=== PATIENT | male | born 1965 | race Caucasian/White ===

== ENCOUNTER 2017-02-09 10:19 | Emergency (ER) | payer BC ==
[2017-02-09 10:43] VITALS: BP 128/99
[2017-02-09] MEDS ORDERED: Lidocaine 1% 30 ML SDV INJECT ONE (10:43)
--- NOTE | 2017-02-09 10:49 | EDM.PDOC ---
ED HPI GENERAL MEDICAL PROBLEM - General Chief Complaint: Laceration Stated Complaint: FISH HOOK IN FINGER Time Seen by Provider: 02/09/17 10:44 Source of Information: Reports: Patient History Limitations: Reports: No Limitations - History of Present Illness INITIAL COMMENTS - FREE TEXT/NARRATIVE: 51 you male presents with fish hook to right thumb. Removed part prior to arrival however still has piece located at nail bed. Onset: Today Location: Reports: Upper Extremity, Left Quality: Reports: Ache Severity: Mild Improves with: Reports: None Worsens with: Reports: None Associated Symptoms: Reports: No Other Symptoms Left 1-Thumb Pain Score (Numeric/FACES): 4 - Related Data Allergies Allergy/AdvReac Type Severity Reaction Status Date / Time No Known Allergies Allergy Verified 02/09/17 10:37 Home Meds: Home Meds . [No Known Home Meds] 02/09/17 [History] ED ROS GENERAL - Review of Systems Review Of Systems: ROS reveals no pertinent complaints other than HPI. ED EXAM, SKIN/RASH Exam: See Below Exam Limited By: No Limitations General Appearance: Alert, WD/WN, No Apparent Distress Respiratory/Chest: No Respiratory Distress, No Accessory Muscle Use Cardiovascular: Normal Peripheral Pulses, Regular Rate, Rhythm Extremities: Normal Range of Motion, Normal Capillary Refill Skin: Warm, Dry, Normal Color, No Rash Location, Skin: Upper Extremity, Left ED SKIN PROCEDURES - Laceration/Wound Repair Left Finger Lac/Wound length In cm: 0.2 Appearance: Superficial Distal NVT: Neuro & Vascular Intact Anesthetic Type: Local Local Anesthesia - Lidocaine (Xylocaine): 1% Plain Local Anesthetic Volume: 5cc Skin Prep: Chlorhexidine (Hibiciens), Providone-Iodine (Betadine), Saline Closed with: Dermabond Drain Placement: No Sterile Dressing Applied: None Tetanus Status Addressed: Yes - Foreign Body Removal Indication:: Fish hook Consent Obtained:: Patient Performing Doctor:: Annamarie Jaramillo Anesthesia Type: Local Anesthesia Other:: 5 cc lidocaine 1% without EPI Findings:: Fish hook removed with needle driver service technician. Complications:: No Course - Vital Signs Last Recorded V/S: Last Vital Signs Temp 98.2 F 02/09/17 10:37 Pulse 89 02/09/17 10:37 Resp 18 02/09/17 10:37 BP 128/99 H 02/09/17 10:37 Pulse Ox 97 02/09/17 10:37 - Orders/Labs/Meds Orders: Active Orders 24 hr Category Date Time Status Vaccines to be Administered [RC] PER UNIT ROUTINE Care 02/09/17 11:34 Ordered Hand 2V Lt [CR] Urgent Exams 02/09/17 10:43 Taken Diphth,Pertuss(Acell),Tet Vac [Adacel] Med 02/09/17 11:34 Once 0.5 ml IM .ONCE ONE Meds: Medications Discontinued Medications Generic Name Dose Route Start Last Admin Trade Name Richard PRN Reason Stop Dose Admin Lidocaine HCl 30 ml 02/09/17 10:43 Xylocaine-Mpf 1% INJECT 02/09/17 10:44 ONETIME ONE Departure - Departure Time of Disposition: 11:36 Disposition: Home, Self-Care 01 Condition: Good Clinical Impression: Removal of foreign body - Discharge Information Instructions: Puncture Wound, [id number], Laceration Care, Adult, Easy-to- Read, Nail Bed Injury, [id number] Forms: ED Department Discharge Additional Instructions: Keep wound clean and dry. Return for any worsening symptoms. - My Orders Last 24 Hours: My Active Orders 02/09/17 10:43 Hand 2V Lt [CR] Urgent 02/09/17 11:34 Vaccines to be Administered [RC] PER UNIT ROUTINE Diphth,Pertuss(Acell),Tet Vac [Adacel] 0.5 ml IM .ONCE ONE - Assessment/Plan Last 24 Hours: My Active Orders 02/09/17 10:43 Hand 2V Lt [CR] Urgent 02/09/17 11:34 Vaccines to be Administered [RC] PER UNIT ROUTINE Diphth,Pertuss(Acell),Tet Vac [Adacel] 0.5 ml IM .ONCE ONE
[2017-02-09] MEDS ORDERED: Diphtheria,Pertussis(Acell),Tetanus Vaccine 0.5 ML SDV IM ONE (11:34)
--- NOTE | 2017-02-09 12:07 | CR ---
Clinical history: 51-year-old male foreign body left thumb. Interpretation: Hersey embedded soft tissues just proximal to the nailbed, radial aspect left thumb (alongside the distal phalanx). This foreign body is not embedded in bone. No underlying fracture or dislocation. (Ring foreign body around the proximal phalanx fourth finger) .
== END 2017-02-09 12:06 | disposition home or self-care (01) ==
LOC: DL.ED 10:19
DX: S61.021A Laceration with foreign body of right thumb without damage to nail, initial encounter (principal); W45.8XXA Other foreign body or object entering through skin, initial encounter
CPT/HCPCS: 12001; 73120-LT; 90715; 96372; 99282